=== PATIENT | female | born 1960 | race Caucasian/White ===

== ENCOUNTER 2023-12-09 04:27 | Emergency (ER) | payer BC, MEDICARE ==
[~2023-12-09] VITALS: Ht 165.1 cm; Wt 115.0 kg
[2023-12-09 04:40] VITALS: BP 122/79; PULSE 87; RESP 18; TEMP 98.1
[2023-12-09] MEDS: GuaiFENesin/D-METHORPHAN [SUGAR-FREE] 200-20MG/10 ML SYRUP UDCUP PO ONE (04:57)
[2023-12-09] MEDS: ACETAMINOPHEN 500 MG TABLET PO ONE (04:57)
[2023-12-09 05:11] LABS: COVID AG,FIA SOURCE NASAL SWAB
[2023-12-09 05:26] LABS: INFLUENZA TYPE A NEGATIVE FOR TYPE A (NEGATIVE); INFLUENZA TYPE B NEGATIVE FOR TYPE B (NEGATIVE); SARS-COV2 (COVID) ANTIGEN,FIA Negative (Negative)
[2023-12-09] MEDS ORDERED: ALBU18HF12 IH (06:10)
[2023-12-09] MEDS ORDERED: GUAIFDM PO (06:10)
[2023-12-09] MEDS ORDERED: IBUP-1554 PO (06:10)
[2023-12-09] MEDS ORDERED: BENZ-227 PO (06:10)
[2023-12-09] MEDS ORDERED: ACET-2080 PO (06:10)
[2023-12-09] MEDS ORDERED: PRED-554 PO (06:10)
[2023-12-09] MEDS ORDERED: FLUT1BLS19 IH (06:10)
[2023-12-09] MEDS: PredniSONE 20 MG TABLET PO ONE (06:20)
== END 2023-12-09 06:24 | disposition home or self-care (01) ==
LOC: EMS 04:30
DX: J06.9 Acute upper respiratory infection, unspecified (principal); J20.9 Acute bronchitis, unspecified; J45.909 Unspecified asthma, uncomplicated; Z88.1 Allergy status to other antibiotic agents; Z20.822 Contact with and (suspected) exposure to COVID-19
CPT/HCPCS: 71046; 87804; 99284

== ENCOUNTER 2024-11-28 07:56 | Emergency (ER) | payer OTHER ==
[~2024-11-28] VITALS: Ht 165.1 cm; Wt 117.0 kg
[~2024-11-28 07:56] MED LIST: ACET-2080 PO; ALBU18HF12 IH; BENZ-227 PO; FLUT1BLS19 IH; GUAIFDM PO; IBUP-1554 PO; LEVO25TA9 PO; LISI-894 PO; PRED-554 PO; SIMV-261 PO
[2024-11-28 08:06] VITALS: TEMP 98.1
[2024-11-28] MEDS ORDERED: ACET-3385 PO (08:40)
[2024-11-28] MEDS ORDERED: IBUP-1492 PO (08:40)
[2024-11-28] MEDS: ACETAMINOPHEN 500 MG TABLET PO ONE (08:52)
[2024-11-28] MEDS: KETOROLAC TROMETHAMINE 30 MG/ML VIAL IM ONE (08:52)
[2024-11-28 10:19] VITALS: BP 121/65; PULSE 68; RESP 18; O2SAT 99
== END 2024-11-28 10:41 | disposition home or self-care (01) ==
LOC: EMS 08:03
DX: S93.402A Sprain of unspecified ligament of left ankle, initial encounter (principal); G89.29 Other chronic pain; Z88.1 Allergy status to other antibiotic agents; Z79.51 Long term (current) use of inhaled steroids; Z79.52 Long term (current) use of systemic steroids; Z79.899 Other long term (current) drug therapy
CPT/HCPCS: 99283; 96372; J1885

== ENCOUNTER 2025-01-08 18:27 | Emergency (ER) | payer OTHER ==
[~2025-01-08] VITALS: Ht 165.1 cm; Wt 117.0 kg
[~2025-01-08 18:27] MED LIST changes: +ACET-3385 PO; +IBUP-1492 PO
[2025-01-08 18:42] VITALS: TEMP 98.6
[2025-01-08] MEDS ORDERED: NAPR-1196 PO (19:48)
[2025-01-08] MEDS: KETOROLAC TROMETHAMINE 30 MG/ML VIAL IM ONE (19:52)
[2025-01-08] MEDS ORDERED: TRAZ-252 PO (19:54)
[2025-01-08] MEDS ORDERED: SENN-297 PO (19:54)
[2025-01-08 20:12] VITALS: BP 122/72; PULSE 76; RESP 18; O2SAT 96
== END 2025-01-08 21:01 | disposition home or self-care (01) ==
LOC: EMS 18:27
DX: S93.402A Sprain of unspecified ligament of left ankle, initial encounter (principal); Z98.890 Other specified postprocedural states; Z79.51 Long term (current) use of inhaled steroids; Z79.52 Long term (current) use of systemic steroids; Z79.899 Other long term (current) drug therapy; Z88.1 Allergy status to other antibiotic agents; X58.XXXA Exposure to other specified factors, initial encounter; Y93.01 Activity, walking, marching and hiking; Y92.031 Bathroom in apartment as the place of occurrence of the external cause; Y99.8 Other external cause status
CPT/HCPCS: 99283; 96372; J1885